=== PATIENT | male | born 1955 | race African-American/Black ===

== ENCOUNTER → 2019-04-01 | Outpatient (CLI) | payer OTHER | LOC: YHH 09:07 ==

== ENCOUNTER 2023-09-18 04:44 | Day surgery (SDC) | payer OTHER ==
[2023-09-13 11:23] VITALS: BMI 34.7
[2023-09-18 12:25] VITALS: TEMP 98
[2023-09-18 13:00] VITALS: BP 140/81; PULSE 76; RESP 18
== END 2023-09-18 13:10 | disposition home or self-care (01) ==
LOC: JASU-ENDO 04:44
PROVIDERS: ATTEND Internal Medicine Gastroenterology
PROC: 0DBL8ZX Excision of Transverse Colon, Via Natural or Artificial Opening Endoscopic, Diagnostic (ICD-10-PCS; 2023-09-18)
PROC: 0DBN8ZX Excision of Sigmoid Colon, Via Natural or Artificial Opening Endoscopic, Diagnostic (ICD-10-PCS; 2023-09-18)
PROC: 0DBP8ZX Excision of Rectum, Via Natural or Artificial Opening Endoscopic, Diagnostic (ICD-10-PCS; principal; 2023-09-18 11:30)
DX: Z12.11 Encounter for screening for malignant neoplasm of colon (principal); D12.7 Benign neoplasm of rectosigmoid junction; D12.5 Benign neoplasm of sigmoid colon; D12.3 Benign neoplasm of transverse colon; K64.8 Other hemorrhoids; Z86.010 Personal history of colon polyps
CPT/HCPCS: 88305-TC

== ENCOUNTER 2024-02-27 10:56 | Inpatient (IN) | payer OTHER ==
[2024-02-27 11:42] VITALS: BMI 31.3
[2024-02-27] MEDS: dilTIAZem HCL 30 MG TABLET PO ONE (12:00)
[2024-02-27] MEDS ORDERED: dilTIAZem HCL 30 MG TABLET ONE (12:08)
[2024-02-27] MEDS ORDERED: FUROSEMIDE 40 MG/4 ML INJECTABLE VIAL ONE (12:23)
[2024-02-27] MEDS: FUROSEMIDE 40 MG/4 ML INJECTABLE VIAL IVPUSH ONE (12:32)
[2024-02-27 12:42] LABS: HEMATOCRIT 38.5 % (35.4-49); HEMOGLOBIN 12.9 GM/dL (11.7-16.9); MCH 28.8 pg (25.7-33.7); MCHC 33.4 g/dl (32.0-35.9); MEAN CELL VOLUME 86.1 fl (80-96); MEAN PLT VOLUME 6.7 fl (7.5-11.1); PLATELET COUNT 293 10^3/uL (134-434); RBC 4.47 M/mm3 (4.00-5.60); RDW 14.1 % (11.9-15.9); WHITE BLOOD COUNT 7.4 K/mm3 (4.0-10.0)
[2024-02-27 13:09] LABS: POTASSIUM 5.1 mmol/L (3.5-5.1)
[2024-02-27 13:13] LABS: CALCIUM 8.4 mg/dL (8.5-10.1)
[2024-02-27 13:14] LABS: ALBUMIN 2.8 g/dl (3.4-5.0); ANISOCYTOSIS 1+; BLOOD UREA NITROGEN 20.2 mg/dL (7-18); MACROCYTOSIS 0
[2024-02-27 13:16] LABS: PLATELET ESTIMATE ADEQUATE
[2024-02-27 13:18] LABS: BILIRUBIN,TOTAL 0.6 mg/dL (0.2-1); TOT PROT 7.2 g/dl (6.4-8.2)
[2024-02-27 13:21] LABS: EPI CELLS 0 /uL (0-25.1); HYALINE CASTS 0 /uL (0-3.1); PH,URINE 5.5 (5.0-8.0); URINE APPEARANCE CLEAR; URINE BACTERIA 0 /uL (0-1359); URINE BILIRUBIN NEGATIVE (NEGATIVE); URINE COLOR YELLOW; URINE GLUCOSE (UA) NEGATIVE (NEGATIVE); URINE KETONE NEGATIVE (NEGATIVE); URINE LEUK ESTERASE NEGATIVE (NEGATIVE); URINE NITRITE NEGATIVE (NEGATIVE); URINE PROTEIN 1+ (NEGATIVE); URINE RBC 4 /uL (0-23.9); URINE UROBILINOGEN 0.2 mg/dL (0.2-1.0); URINE WBC 1 /uL (0-25.8)
[2024-02-27] MEDS ORDERED: CEFTRIAXONE 1 GM/50 ML BAG ONE (14:55)
[2024-02-27] MEDS ORDERED: AZITHROMYCIN IVPB 500 MG/250 ML BAG IVPB ONE ×2 (14:55→16:37)
[2024-02-27] MEDS ORDERED: ACETAMINOPHEN INJECTION 100 ML IVPB ONE (14:55)
[2024-02-27] MEDS: CEFTRIAXONE 1,000 MG in DEXTROSE 5%-WATER - 50 ML IVPB ONE (15:01)
[2024-02-27] MEDS: ACETAMINOPHEN 1000 MG/100 ML BAG IVPB ONE (16:50)
[2024-02-27] MEDS: AZITHROMYCIN IVPB 500 MG in DEXTROSE 5%-WATER - 250 ML IVPB ONE (17:16)
[2024-02-27 17:17] VITALS: BP 121/70; PULSE 96; RESP 17; TEMP 98.4
[2024-02-28] MEDS ORDERED: ENOXAPARIN NA (PORCINE) 40 MG/0.4 ML DISP.SYRIN SQ SCH (10:00)
[2024-02-28] MEDS ORDERED: LOSARTAN POTASSIUM 50 MG TABLET PO SCH (10:00)
[2024-02-28] MEDS ORDERED: CEFTRIAXONE 1 GM in DEXTROSE 5%-WATER - 50 ML IVPB SCH (10:00)
== END 2024-02-27 19:24 | disposition left against medical advice (07) | DRG 179 ==
LOC: JER 10:56 → JERBED 14:45
PROVIDERS: ADMIT Internal Medicine; ATTEND Internal Medicine
DX: U07.1 COVID-19 (principal); I10 Essential (primary) hypertension; R91.8 Other nonspecific abnormal finding of lung field; K59.00 Constipation, unspecified; I48.91 Unspecified atrial fibrillation; M54.50 Low back pain, unspecified; M17.11 Unilateral primary osteoarthritis, right knee; F17.210 Nicotine dependence, cigarettes, uncomplicated; R00.0 Tachycardia, unspecified; E66.9 Obesity, unspecified; Z68.31 Body mass index [BMI] 31.0-31.9, adult
CPT/HCPCS: 0241U-QW; 36415; 71045-TC-FY; 71250-TC; 80053; 81003; 83880; 84484; 85025; 87040; 87899; 93005; 93010; 99285-25; J0131